=== PATIENT | female | born 1960 | race Caucasian/White ===

== ENCOUNTER 2017-04-25 10:14 | Emergency (ER) | payer OTHER, BC ==
[~2017-04-25] VITALS: Ht 170.2 cm; Wt 93.1 kg
[2017-04-25 10:19] VITALS: TEMP 36.6; Ht 170.2 cm; Wt 93.1 kg
[2017-04-25] MEDS ORDERED: XYLOCAINE 1%/SOD BICARB 20 ML VIAL INFIL ONE (10:44)
--- NOTE | 2017-04-25 11:20 | EMERGENCY ROOM VISIT NOTE ---
History Report prepared by Alhaji: Renée Caro Under the Supervision of: Dr. Roslyn Montalvo M.D. First contact with patient: 10:43 Chief Complaint: LACERATION/CUT (SUT/DERMABOND) Stated Complaint: LACERATION TO L INDEX FINGER Nursing Triage Summary: left first finger laceration, cut with kitchen knife. History of Present Illness The patient is a 56 year old female who presents to the Emergency Room with complaints of a laceration this morning. The patient was cutting a bagel with a steak knife when she cut her left index finger. The cut was bleeding so she applied a bandage and came to the ED. She has no other complaints. Source of History: patient Onset: this morning Position: finger(s) (index) Quality: other (laceration) Timing: other (episodic) Note: Pt reports bleeding. Review of Systems See HPI for pertinent positives & negatives. A total of 6 systems reviewed and were otherwise negative. Past Medical & Surgical Medical Problems: (1) Migraine Family History Cancer Diabetes mellitus Heart disease Hypertension Social History Smoking Status: Never Smoker Marital Status: Housing Status: lives with significant other Occupation Status: employed Current/Historical Medications No Active Prescriptions or Reported Meds Allergies Coded Allergies: Penicillins (Verified Allergy, Unknown, unk, 04/25/17) Sulfa Antibiotics (Verified Allergy, Unknown, RASH, 04/25/17) Physical Exam Vital Signs Date Time Temp Pulse Resp B/P (MAP) Pulse Ox O2 Delivery O2 Flow Rate FiO2 04/25/17 11:39 74 18 168/92 98 Room Air 04/25/17 10:19 36.6 69 18 147/96 96 Room Air Physical Exam Vital signs reviewed. General: Well-appearing female, in no significant distress. Musculoskeletal: 6 mm laceration to the left index finger at the DIP joint, subcutaneous fat noted, no deep tendon structures. Neurologic: Patient awake alert and oriented x 3 Skin: Warm, dry, no rash Medical Decision & Procedures Medications Administered Medications (Trade) Dose Ordered Sig/Pamela Route Start Time Stop Time Status Last Admin Dose Admin Diphtheria/ Pertussis/Tetanus Vacc (Adacel Inj) 0.5 ml ONCE ONCE IM. 04/25/17 11:30 04/25/17 11:32 DC 04/25/17 11:37 0.5 ML ED Course 1046: Past medical records reviewed. The patient was evaluated in room A2. A complete history and physical examination was performed. 1055: The laceration was repaired by Clifford Mckeon PA-C. See his note for details. 1130: Adacel Inj 0.5 ml IM. 1135: Upon reevaluation, the patient was resting comfortably. I discussed findings with her. She verbalized agreement of the treatment plan. She was discharged home. Medical Decision This patient was evaluated and appeared to be in no significant distress. Tetanus status was updated and the wound was approximated by PATRICK Francis. Please see his notes regarding the procedure. The patient was given wound care instructions and details for suture removal. She will follow-up with her PCP or return to the ER. Patient will return sooner for signs of infection or any medical concerns. Medication Reconcilliation Current Medication List: was personally reviewed by me Blood Pressure Screening Patient's blood pressure: Elevated blood pressure Blood pressure disposition: Elevated BP felt to be situational Impression Primary Impression: Laceration of finger Scribe Attestation The scribe's documentation has been prepared under my direction and personally reviewed by me in its entirety. I confirm that the note above accurately reflects all work, treatment, procedures, and medical decision making performed by me. Departure Information Dispostion Home / Self-Care Prescriptions No Active Prescriptions or Reported Meds Referrals No Doctor, Assigned (PCP) Forms HOME CARE DOCUMENTATION FORM, IMPORTANT VISIT INFORMATION Patient Instructions My [facility] Additional Instructions Diagnosis: Index finger laceration. Your tetanus status was updated today. Keep wound clean and dry. No water on the area for 12-24 hrs then no soaking until sutures removed. Do not allow any crusting or dried blood to accumulate on sutures. If this occurs, use a 1:1 solution of hydrogen peroxide/water on a Q-tip to clean the wound. Use an antibiotic ointment for 3-4 days, then let wound dry. Suture removal in 7 days. Follow up sooner for any signs of infection (increasing redness, swelling, drainage). Ice and elevate for swelling and pain. Ibuprofen 600 mg and/or Tylenol 650 mg every 6 hrs for pain. Keep covered when in sun until sutures removed then SPF 50 or higher for one year. Vitamin E oil if desired two weeks after suture removal for reduction of scar.
--- NOTE | 2017-04-25 11:26 | EMERGENCY ROOM VISIT NOTE ---
ED Visit Note Emergency Department Procedure Note I was asked to see Ms. Hdz by Dr. Montalvo for repair of a laceration to the left index finger she sustained while cutting a piece of frozen food. Please see Dr. Montalvo's notes for full information about her ED course. Wound Repair: Description: 0.6 cm full-thickness laceration over the anterior aspect of the left index finger at the level of the DIP joint. Complexity: Basic Verbal consent was obtained after the risks and benefits were explained. The skin was prepped with betadine and a sterile field set. Wound edges of the wound was anesthetized with 0.8 ml buffered 1% lidocaine. The wound was explored for foreign bodies and none found. Copious irrigation was performed using sterile saline. With direct pressure the bleeding subsided. Debridement was not performed. The wound edges were approximated using 5-0 Ethilon with 2 simple interrupted sutures. Hemostasis and excellent approximation was achieved. Antibacterial ointment and a sterile dressing applied. Because the laceration was over a joint line a small metal splint was applied to decrease the motion at the DIP joint. No complications and the patient tolerated the procedure well.
[2017-04-25] MEDS ORDERED: DIPHTHERIA/TETANUS/PERTUSSIS 0.5 ML SYR/VIAL IM. ONE (11:30)
[2017-04-25 11:39] VITALS: BP 168/92; PULSE 74; O2SAT 98
== END 2017-04-25 11:44 | disposition home or self-care (01) ==
LOC: C.EDB 10:15 → C.EDA 11:44
DX: S61.211A Laceration without foreign body of left index finger without damage to nail, initial encounter (principal); Z23 Encounter for immunization; Z87.898 Personal history of other specified conditions; Z82.49 Family history of ischemic heart disease and other diseases of the circulatory system; Z83.3 Family history of diabetes mellitus; W26.0XXA Contact with knife, initial encounter; Y93.G3 Activity, cooking and baking

== ENCOUNTER 2017-05-03 10:51 | Emergency (ER) | payer OTHER, BC ==
[~2017-05-03] VITALS: Ht 170.2 cm; Wt 93.7 kg
[2017-05-03 11:02] VITALS: BP 115/76; PULSE 81; TEMP 36.8; O2SAT 96; Ht 170.2 cm; Wt 93.7 kg
--- NOTE | 2017-05-03 11:09 | EMERGENCY ROOM VISIT NOTE ---
ED Visit Note First contact with patient: 11:06 CHIEF COMPLAINT: Suture removal left index finger HISTORY of present illness: This 56-year-old female patient returns to the ED today for removal of sutures that were placed 8 days ago into her left index finger. There has been no swelling, redness, or drainage from the wound. The patient feels like the laceration is healing well. REVIEW OF SYSTEMS: Head: No headache, injury or neck pain. Skin: No rash, new lesions, or masses. General: No fever or chills, fatigue, loss of appetite , or significant recent weight gain or loss. PMH: The patient is healthy; migraines SOCIAL HISTORY: Patient lives with her PHYSICAL EXAM: Vital Signs: Were reviewed Reviewed Nurse's notes. GENERAL: 56- year-old white female appears in no acute distress. MENTAL Status: Alert and oriented 3. LEFT INDEX FINGER: There is a sutured wound on the distal phalanx with no signs of infection. There is no erythema, swelling, or tenderness. EMERGENCY DEPARTMENT COURSE: The sutures were removed without any difficulty and there was no separation of the wound edges. DIAGNOSIS: Healing left index finger laceration and suture removal DISCHARGE INSTRUCTIONS AND TREATMENT: Wash any remaining crusts off of the wound today and resume your normal activities. Problem List Medical Problems: (1) Migraine Status: Resolved Current/Historical Medications No Active Prescriptions or Reported Meds Allergies Coded Allergies: Penicillins (Verified Allergy, Unknown, unk, 04/25/17) Sulfa Antibiotics (Verified Allergy, Unknown, RASH, 04/25/17) Vital Signs Date Time Temp Pulse Resp B/P (MAP) Pulse Ox O2 Delivery O2 Flow Rate FiO2 05/03/17 11:02 36.8 81 16 115/76 96 Room Air Departure Information Prescriptions No Active Prescriptions or Reported Meds Referrals Elyse Cash M.D. (PCP) Patient Instructions My [facility]
== END 2017-05-03 11:15 | disposition home or self-care (01) ==
LOC: C.EDB 10:52 → C.EDD 11:15
DX: Z48.02 Encounter for removal of sutures (principal); S61.211A Laceration without foreign body of left index finger without damage to nail, initial encounter; W26.0XXA Contact with knife, initial encounter